=== PATIENT | female | born 1960 | race Caucasian/White ===

== ENCOUNTER 2020-04-12 09:05 | Emergency (ER) | payer BC ==
--- OUTSIDE RECORDS SUMMARY | 2020-04-12 09:07 | XMS REPORT | Continuity of Care Document ---
:1960 Author Organization [facility] t Address [address] [place] [address] Care Team Providers Name Role Phone Unavailable Unavailable Unavailable Payers Payer Name Policy Type Policy Number Effective Date Expiration Date S ource Problems This patient has no known problems. Allergies, Adverse Reactions, Alerts Allergy Allergy Status Severity Reaction(s) Onset Inactive Treating Comm ents Source Name Type Date Date Clinician codeine DA Active [place] 2018-08 [facility] 09-21 [place] 00:00: [facility] adhesive DA Active [place] 2018-08 [facility] tape 09-21 [place] 00:00: [facility] codeine DA Active [place] 2018-08 [facility] 09-12 [place] 00:00: [facility] latex DA Active [place] 2018-08 [facility] 09-12 [place] 00:00: [facility] Medications This patient has no known medications. Procedures This patient has no known procedures. Results This patient has no known results.
[2020-04-12] MEDS ORDERED: NA CHLORIDE 0.9% 1,000 ML ONE (09:52)
[2020-04-12 10:15] LABS: Absolute Lymphocytes (CBC) 2.1 K/uL (0.7-4.9); Basophils % 0.6 % (0-1.3); Hematocrit 36.8 % (36.0-45.0); Lymphocytes % 33.8 % (15.3-44.8); MPV 9.8 fL (7.6-11.3); RBC Red Blood Cell Count 4.06 M/uL (3.86-4.86)
[2020-04-12 10:18] LABS: Protime INR 0.95
[2020-04-12 10:38] LABS: ALT/SGPT 21 U/L (12-78); AST/SGOT 12 U/L (15-37); Albumin 3.7 g/dL (3.4-5.0); Alkaline Phosphatase 73 U/L (45-117); BUN Blood Urea Nitrogen 20 mg/dL (7-18); Bicarbonate 27 mmol/L (21-32); Bilirubin Direct 0.2 mg/dL (0-0.2); Bilirubin Total 0.5 mg/dL (0.2-1.0); Glucose Level 92 mg/dL (74-106); NT PRO-BNP 21 pg/mL (<125); Potassium 3.6 mmol/L (3.5-5.1); Protein, Total 6.8 g/dL (6.4-8.2); Sodium Level 142 mmol/L (136-145); Troponin (Emerg Dept Use Only) < 0.02 ng/mL (0.0-0.045)
--- NOTE | 2020-04-12 10:42 | RAD REPORT ---
EXAM DESCRIPTION: RAD - Chest Single View - 04/12/2020 10:22 am CLINICAL HISTORY: COUGH Chest pain. COMPARISON: CHEST PA AND LAT 2 VIEW dated 12/27/2008; CHEST PA AND LAT 2 VIEW dated 05/12/1994 FINDINGS: Portable technique limits examination quality. The lungs are grossly clear. The heart is normal in size. No displaced fractures. IMPRESSION: No acute intrathoracic process suspected.
--- NOTE | 2020-04-12 11:30 | ER ---
Nurse's Notes [facility] Name: Betsy Banda Age: 59 yrs Sex: Female : 1960 Arrival Date: 04/12/2020 Time: 09:08 Bed 20 Private MD: Diagnosis: Weakness;Hypothyroidism, unspecified Presentation: 04/12 09:15 Chief complaint: Patient states: tested positive for COVID on Mar 17, was tested at [facility] in [place], her arms and legs are so heavy and she feels so weak, is constantly eating something and just wants to sleep, no fever , cough. Coronavirus screen: Client reports previous positive COVID test result. Date of collection: March 17, 2020. Ebola Screen: Patient negative for fever greater than or equal to 101.5 degrees Fahrenheit, and additional compatible Ebola Virus Disease symptoms Patient denies exposure to infectious person. Patient denies travel to an Ebola-affected area in the 21 days before illness onset. No symptoms or risks identified at this time. Initial Sepsis Screen: Does the patient meet any 2 criteria? No. Patient's initial sepsis screen is negative. Does the patient have a suspected source of infection? No. Patient's initial sepsis screen is negative. Risk Assessment: Do you want to hurt yourself or someone else? Patient reports no desire to harm self or others. Onset of symptoms was March 12, 2020. 09:15 Method Of Arrival: Ambulatory 09:15 Acuity: ADÁN 3 iw Historical: - Allergies: 09:19 Codeine; iw - Home Meds: 09:19 levothyroxine 150 mcg tab 1 tab once daily [Active]; fenofibrate oral 134 mg oral once iw daily [Active]; - PMHx: 09:19 Hypothyroidism; iw - PSHx: 09:19 shoulder; Carpal Tunnel Repair; Hysterectomy; iw - Immunization history:: Adult Immunizations up to date. - Social history:: Smoking status: Patient denies any tobacco usage or history of. Screenin:22 Abuse screen: Denies threats or abuse. Nutritional screening: No deficits noted. rb1 Tuberculosis screening: No symptoms or risk factors identified. Fall Risk None identified. Assessment: 09:22 General: Appears in no apparent distress. Behavior is calm, cooperative, Denies fever. rb1 Pain: Denies pain. Neuro: Level of Consciousness is awake, alert, obeys commands, Oriented to person, place, time, situation, Reports weakness. Cardiovascular: Capillary refill < 3 seconds. Respiratory: Airway is patent Respiratory effort is even, unlabored, Respiratory pattern is regular, symmetrical. GI: No signs and/or symptoms were reported involving the gastrointestinal system. : No signs and/or symptoms were reported regarding the genitourinary system. Derm: Skin is pink, warm \T\ dry. Musculoskeletal: Range of motion: intact in all extremities. 10:19 Reassessment: Patient appears in no apparent distress at this time. No changes from rb1 previously documented assessment. 11:15 Reassessment: Patient appears in no apparent distress at this time. rb1 11:59 Reassessment: Discharge pending due to awaiting lab results. iw 12:00 Reassessment: Patient appears in no apparent distress at this time. Patient and/or rb1 family updated on plan of care and expected duration. Pain level reassessed. Patient is alert, oriented x 3, equal unlabored respirations, skin warm/dry/pink. 12:50 Reassessment: Awaiting lab results. iw Vital Signs: 09:15 Pulse 83; Resp 16; Temp 98.9; Pulse Ox 98% on R/A; Weight 81.65 kg; Height 5 ft. 9 in. iw (175.26 cm); 10:15 BP 115 / 74; Pulse 71; Resp 15; Pulse Ox 97% ; rb1 11:10 BP 123 / 72; Pulse 70; Resp 14; Pulse Ox 97% ; rb1 12:10 BP 115 / 64; Pulse 67; Resp 13; Pulse Ox 100% ; rb1 13:10 BP 127 / 69; Pulse 66; Resp 12; Pulse Ox 100% ; iw 09:15 Body Mass Index 26.58 (81.65 kg, 175.26 cm) iw NIH Stroke Scale Scores: 11:23 NIHSS Score: 0 emir ED Course: 09:08 Patient arrived in ED. ds1 09:17 Triage completed. iw 09:19 Arm band placed on. iw 09:23 Joni Christianson MD is Attending Physician. emir 09:38 Babrara Cruz, RN is Primary Nurse. rb1 10:00 Initial lab(s) drawn, by me, sent to lab. First set of blood cultures drawn EKG done, mh5 by ED staff, reviewed by Joni Christianson MD. Inserted saline lock: 22 gauge in left forearm, using aseptic technique. Blood collected. 10:08 D-Dimer Sent. 5 10:09 Lactate Sent. mh5 10:09 Procalcitonin Sent. 5 10:09 Blood Culture Adult (2) Sent. mh5 10:09 Basic Metabolic Panel Sent. 5 10:09 CBC with Diff Sent. 5 10:09 LFT's Sent. 5 10:09 Magnesium Sent. 5 10:09 NT PRO-BNP Sent. 5 10:09 PT-INR Sent. 5 10:09 Troponin (emerg Dept Use Only) Sent. mh5 10:10 Patient has correct armband on for positive identification. Placed in gown. Bed in low mh5 position. Call light in reach. Side rails up X 1. Warm blanket given. hall monitor on. Pulse ox on. NIBP on. 10:22 XRAY Chest (1 view) In Process Unspecified. EDMS 13:18 No provider procedures requiring assistance completed. IV discontinued, intact, rb1 bleeding controlled, No redness/swelling at site. Pressure dressing applied. Administered Medications: 10:13 Drug: NS 0.9% 1000 ml Route: IV; Rate: 125 ml/hr; Site: left forearm; rb1 11:58 Drug: Aspirin Chewable Tablet 324 mg Route: PO; rb1 11:58 Drug: Solu-CORTEF 100 mg Route: IVP; Site: left forearm; rb1 Outcome: 11:30 Discharge ordered by . emir 13:18 Patient left the ED. rb1 13:18 Discharged to home ambulatory. rb1 13:18 Condition: stable 13:18 Discharge instructions given to patient, Instructed on discharge instructions, follow up and referral plans. Demonstrated understanding of instructions, follow-up care, medications, Prescriptions given X 1. NIH Stroke Scale - NIH Stroke Score Date: 04/12/2020 Time: 11:23 Total Score = 0 1a. Level of Consciousness (LOC) - 0(Alert) 1b. Level of Consciousness (LOC) (Year \T\ Age) - 0(Both) 1c. LOC Commands (Open \T\ Closes Eyes/Flattening Machine Operator) - 0(Both) 2. Best Gaze (Lateral Gaze Paresis) - 0(Normal) 3. Visual Field Loss - 0(No visual loss) 4. Facial Palsy - 0(Normal) 5a. Left Arm: Motor (10-second hold) - 0(No drift) 5b. Right Arm: Motor (10-second hold) - 0(No drift) 6a. Left Leg: Motor (5-second hold - always test supine) - 0(No drift) 6b. Right Leg: Motor (5-second hold - always test supine) - 0(No drift) 7. Limb Ataxia (finger/nose \T\ heel/quiros - test with eyes open) - 0(Absent) 8. Sensory Loss (pinprick arms/legs/face) - 0(Normal) 9. Best Language: Aphasia (description/naming/reading) - 0(No aphasia) 10. Dysarthria (speech clarity - read or repeat words) - 0(Normal) 11. Extinction and Inattention (visual/tactile/auditory/spatial/personal) - 0(No abnormality) Initials: emir Signatures: Dispatcher [employer] EDMS Joni Christianson MD MD cha Sanford, Demi ds1 Romelia Arciniega RN RN iw Barbara Cruz RN RN rb1 [facility] Corrections: (The following items were deleted from the chart) 13:30 13:28 Patient left the ED. amanda rb1
--- NOTE | 2020-04-12 11:30 | EDPHYS ---
Physician Documentation [facility] Name: Betsy Banda Age: 59 yrs Sex: Female : 1960 Arrival Date: 04/12/2020 Time: 09:08 Bed 20 Private MD: ED Physician Joni Christianson HPI: 04/12 11:23 This 59 yrs old Female presents to ER via Ambulatory with complaints of emir Weakness, Covid +. Historical: - Allergies: : Codeine; iw - Home Meds: : levothyroxine 150 mcg tab 1 tab once daily [Active]; fenofibrate oral 134 mg oral once iw daily [Active]; - PMHx: : Hypothyroidism; iw - PSHx: : shoulder; Carpal Tunnel Repair; Hysterectomy; iw - Immunization history:: Adult Immunizations up to date. - Social history:: Smoking status: Patient denies any tobacco usage or history of. ROS: 11:23 Constitutional: Negative for fever, chills, and weight loss, Eyes: Negative for injury, emir pain, redness, and discharge, ENT: Negative for injury, pain, and discharge, Neck: Negative for injury, pain, and swelling, Cardiovascular: Negative for chest pain, palpitations, and edema, Respiratory: Negative for shortness of breath, cough, wheezing, and pleuritic chest pain, Abdomen/GI: Negative for abdominal pain, nausea, vomiting, diarrhea, and constipation, Back: Negative for injury and pain, : Negative for injury, bleeding, discharge, and swelling, MS/Extremity: Negative for injury and deformity, Skin: Negative for injury, rash, and discoloration, Psych: Negative for depression, anxiety, suicide ideation, homicidal ideation, and hallucinations, Allergy/Immunology: Negative for hives, rash, and allergies, Endocrine: Negative for neck swelling, polydipsia, polyuria, polyphagia, and marked weight changes, Hematologic/Lymphatic: Negative for swollen nodes, abnormal bleeding, and unusual bruising. 11:23 Neuro: Positive for weakness. Exam: 11:23 Constitutional: This is a well developed, well nourished patient who is awake, alert, emir and in no acute distress. Head/Face: Normocephalic, atraumatic. Eyes: Pupils equal round and reactive to light, extra-ocular motions intact. Lids and lashes normal. Conjunctiva and sclera are non-icteric and not injected. Cornea within normal limits. Periorbital areas with no swelling, redness, or edema. ENT: Nares patent. No nasal discharge, no septal abnormalities noted. Tympanic membranes are normal and external auditory canals are clear. Oropharynx with no redness, swelling, or masses, exudates, or evidence of obstruction, uvula midline. Mucous membranes moist. Neck: Trachea midline, no thyromegaly or masses palpated, and no cervical lymphadenopathy. Supple, full range of motion without nuchal rigidity, or vertebral point tenderness. No Meningismus. Chest/axilla: Normal chest wall appearance and motion. Nontender with no deformity. No lesions are appreciated. Cardiovascular: Regular rate and rhythm with a normal S1 and S2. No gallops, murmurs, or rubs. Normal PMI, no JVD. No pulse deficits. Respiratory: Lungs have equal breath sounds bilaterally, clear to auscultation and percussion. No rales, rhonchi or wheezes noted. No increased work of breathing, no retractions or nasal flaring. Abdomen/GI: Soft, non-tender, with normal bowel sounds. No distension or tympany. No guarding or rebound. No evidence of tenderness throughout. Back: No spinal tenderness. No costovertebral tenderness. Full range of motion. Skin: Warm, dry with normal turgor. Normal color with no rashes, no lesions, and no evidence of cellulitis. MS/ Extremity: Pulses equal, no cyanosis. Neurovascular intact. Full, normal range of motion. Neuro: Awake and alert, GCS 15, oriented to person, place, time, and situation. Cranial nerves II-XII grossly intact. Motor strength 5/5 in all extremities. Sensory grossly intact. Cerebellar exam normal. Normal gait. Psych: Awake, alert, with orientation to person, place and time. Behavior, mood, and affect are within normal limits. 11:23 Musculoskeletal/extremity: ROM: full active range of motion, full passive range of motion, Circulation is intact in all extremities. Sensation intact. Compartment Syndrome exam of affected extremity: is normal. DVT Exam: No signs of deep vein thrombosis. no pain, no swelling, no tenderness, negative Homans' sign noted on exam, no appreciated bluish discoloration, no erythema, no increased warmth. 11:23 Neuro: Orientation: appropriate for stated age, Mentation: appropriate for stated age, no acute changes, Memory: appropriate for stated age, no acute changes, Cranial nerves: is grossly normal based on the patient's age, no acute changes, Cerebellar function: is grossly normal based on the patient's age, no acute changes, Motor: is grossly normal based on the patient's age, no acute changes, moves all fours, strength is 5/5 in all extremities. 11:34 ECG was reviewed by the Attending Physician. [facility] Vital Signs: 09:15 Pulse 83; Resp 16; Temp 98.9; Pulse Ox 98% on R/A; Weight 81.65 kg; Height 5 ft. 9 in. iw (175.26 cm); 10:15 BP 115 / 74; Pulse 71; Resp 15; Pulse Ox 97% ; rb1 11:10 BP 123 / 72; Pulse 70; Resp 14; Pulse Ox 97% ; rb1 12:10 BP 115 / 64; Pulse 67; Resp 13; Pulse Ox 100% ; rb1 13:10 BP 127 / 69; Pulse 66; Resp 12; Pulse Ox 100% ; iw 09:15 Body Mass Index 26.58 (81.65 kg, 175.26 cm) NIH Stroke Scale Scores: 11:23 NIHSS Score: 0 emir MDM: 09:23 Patient medically screened. [facility] 11:26 Data reviewed: vital signs, nurses notes, lab test result(s), EKG, radiologic studies, emir CT scan, plain films. 11:28 Differential Diagnosis altered mental status, sepsis. Data interpreted: Cardiac [facility] monitor: rate is 83 beats/min, Pulse oximetry: on room air is 98 %. Test interpretation: by ED physician or midlevel provider: ECG, plain radiologic studies. Counseling: I had a detailed discussion with the patient and/or guardian regarding: the historical points, exam findings, and any diagnostic results supporting the discharge/admit diagnosis, lab results, radiology results, the need for outpatient follow up, for definitive care, a emergency manager, an pump stitcher. ED course: all test explained, follow up encouraged. 04/12 09:27 Order name: Basic Metabolic Panel; Complete Time: 12:53 [facility] 04/12 09:27 Order name: CBC with Diff; Complete Time: 11:04 [facility] 04/12 09:27 Order name: LFT's; Complete Time: 12:53 [facility] 04/12 09:27 Order name: Magnesium; Complete Time: 12:53 [facility] 04/12 09:27 Order name: NT PRO-BNP; Complete Time: 12:53 [facility] 04/12 09:27 Order name: PT-INR; Complete Time: 11:04 [facility] 04/12 09:27 Order name: Troponin (emerg Dept Use Only); Complete Time: 12:53 [facility] 04/12 09:27 Order name: Blood Culture Adult (2) [facility] 04/12 09:27 Order name: Procalcitonin; Complete Time: 11:04 [facility] 04/12 09:27 Order name: Lactate; Complete Time: 11:04 [facility] 04/12 09:27 Order name: D-Dimer; Complete Time: 11:04 [facility] 04/12 11:31 Order name: LAB Add On eb 04/12 11:34 Order name: Thyroid Stimulating Hormone; Complete Time: 12:53 EDMS 04/12 09:27 Order name: XRAY Chest (1 view); Complete Time: 11:04 [facility] 04/12 09:27 Order name: EKG; Complete Time: 09:28 [facility] 04/12 09:27 Order name: Cardiac monitoring; Complete Time: 10:09 [facility] 04/12 09:27 Order name: EKG - Nurse/Tech; Complete Time: 10:09 [facility] 04/12 09:27 Order name: IV Saline Lock; Complete Time: 10:09 [facility] 04/12 09:27 Order name: Labs collected and sent; Complete Time: 10:09 [facility] 04/12 09:27 Order name: O2 Per Protocol; Complete Time: 10:13 [facility] 04/12 09:27 Order name: O2 Sat Monitoring; Complete Time: 10:13 [facility] 04/12 09:27 Order name: Urine Dipstick-Ancillary (obtain specimen); Complete Time: 12:04 [facility] 04/12 11:59 Order name: T4 Free; Complete Time: 12:53 EDMS 04/12 12:00 Order name: Urine Dipstick--Ancillary (enter results) eb EC:34 Rate is 73 beats/min. Rhythm is regular. QRS Hardy is Normal. WA interval is normal. QRS emir interval is normal. QT interval is normal. No Q waves. T waves are Normal. No ST changes noted. Clinical impression: Normal ECG and No evidence of ischemia. Interpreted by me. Reviewed by me. Administered Medications: 10:13 Drug: NS 0.9% 1000 ml Route: IV; Rate: 125 ml/hr; Site: left forearm; rb1 11:58 Drug: Aspirin Chewable Tablet 324 mg Route: PO; rb1 11:58 Drug: Solu-CORTEF 100 mg Route: IVP; Site: left forearm; rb1 Disposition: 04/12/20 11:30 Discharged to Home. Impression: Weakness, Hypothyroidism, unspecified. - Condition is Stable. - Discharge Instructions: Hypothyroidism, Weakness, Fatigue, Weakness, [id number], Aspirin and Your Heart. - Prescriptions for Medrol (Yonis) 4 mg Oral Tablets, Dose Pack - take 1 tablet by ORAL route as directed - follow package instructions; 1 packet. - Medication Reconciliation Form, Thank You Letter, Antibiotic Education, Prescription Opioid Use form. - Follow up: Private Physician; When: 2 - 3 days; Reason: Recheck today's complaints, Continuance of care, Re-evaluation by your physician. - Problem is new. - Symptoms have improved. NIH Stroke Scale - NIH Stroke Score Date: 04/12/2020 Time: 11:23 Total Score = 0 1a. Level of Consciousness (LOC) - 0(Alert) 1b. Level of Consciousness (LOC) (Year \T\ Age) - 0(Both) 1c. LOC Commands (Open \T\ Closes Eyes/Cash Poster) - 0(Both) 2. Best Gaze (Lateral Gaze Paresis) - 0(Normal) 3. Visual Field Loss - 0(No visual loss) 4. Facial Palsy - 0(Normal) 5a. Left Arm: Motor (10-second hold) - 0(No drift) 5b. Right Arm: Motor (10-second hold) - 0(No drift) 6a. Left Leg: Motor (5-second hold - always test supine) - 0(No drift) 6b. Right Leg: Motor (5-second hold - always test supine) - 0(No drift) 7. Limb Ataxia (finger/nose \T\ heel/quiros - test with eyes open) - 0(Absent) 8. Sensory Loss (pinprick arms/legs/face) - 0(Normal) 9. Best Language: Aphasia (description/naming/reading) - 0(No aphasia) 10. Dysarthria (speech clarity - read or repeat words) - 0(Normal) 11. Extinction and Inattention (visual/tactile/auditory/spatial/personal) - 0(No abnormality) Initials: [facility] Signatures: Dispatcher [employer] [facility] Joni Christianson MD MD cha Williams, Irene, FREDO RN iw Barbara Cruz RN RN rb1 Corrections: (The following items were deleted from the chart) 11:34 11:31 THYROID STIMULAT HORMONE+C.LAB.BRZ ordered. [facility] 12:54 11:30 04/12/2020 11:30 Discharged to Home. Impression: Weakness. Condition is emir Stable. Forms are Medication Reconciliation Form, Thank You Letter, Antibiotic Education, Prescription Opioid Use. Follow up: Private Physician; When: 2 - 3 days; Reason: Recheck today's complaints, Continuance of care, Re-evaluation by your physician. Problem is new. Symptoms have improved. [facility] 13:28 12:54 04/12/2020 11:30 Discharged to Home. Impression: Weakness; iw Hypothyroidism, unspecified. Condition is Stable. Discharge Instructions: Weakness, Fatigue, Weakness, [id number], Aspirin and Your Heart. Prescriptions for Medrol (Yonis) 4 mg Oral Tablets, Dose Pack - take 1 tablet by ORAL route as directed - follow package instructions; 1 packet. and Forms are Medication Reconciliation Form, Thank You Letter, Antibiotic Education, Prescription Opioid Use. Follow up: Private Physician; When: 2 - 3 days; Reason: Recheck today's complaints, Continuance of care, Re-evaluation by your physician. Problem is new. Symptoms have improved. emir
[2020-04-12] MEDS ORDERED: HYDROCORTISONE SUC 100 MG INJ ONE (11:43)
[2020-04-12] MEDS ORDERED: ASPIRIN 81 MG CHEWABLE TABLET ONE (11:43)
[2020-04-12 13:03] LABS: Urine Blood NEGATIVE (NEG); Urine Glucose NEGATIVE (NEG); Urine Protein NEGATIVE (NEG); Urine pH 6.5 (5.0-7.0)
--- NOTE | 2020-04-13 06:54 | EKG ---
Test Date: 2020-04-12 Test Time: 09:42:18 Floral Designer: STEPHANIE MEASUREMENT RESULTS: Intervals: Rate: 73 MT: 154 QRSD: 84 QT: 408 QTc: 449 [place]: P: 56 MT: 154 QRS: 7 T: 54 INTERPRETIVE STATEMENTS: Normal sinus rhythm Cannot rule out Anterior infarct, age undetermined Abnormal ECG Compared to ECG 11/02/1995 14:22:00 Myocardial infarct finding now present Sinus bradycardia no longer present Electronically Signed On 04-13-20 06:53:11 CDT by Constantino Craft
[2020-04-13 12:54] VITALS: TEMP 98.9
[2020-04-13 12:58] VITALS: O2SAT 100
[2020-04-13 12:59] VITALS: BP 127/69
== END 2020-04-12 13:28 | disposition home or self-care (01) ==
LOC: ER 09:05
DX: E03.9 Hypothyroidism, unspecified (principal); Z86.19 Personal history of other infectious and parasitic diseases; Z88.5 Allergy status to narcotic agent
CPT/HCPCS: 93005; 87040 ×2; 85025; 80048; 36415; 83735; 85610; 85379; 80076; 83605; 84443; 81003; 84484; 84439; 84145; 83880; 71045; 96374; 99285; J7030; J1720

== ENCOUNTER 2024-05-22 03:50 | Emergency (ER) | payer BC, OTHER ==
--- OUTSIDE RECORDS SUMMARY | 2024-05-22 03:53 | XMS REPORT | Continuity of Care Document ---
Author Name Unknown Address [address] [place] [address] [facility] thconnect Address [address] [place] [address] Care Team Providers Care Primary Teacher Name Role Phone Unavailable Unavailable Unavailable Payers Payer Name Policy Type Policy Number Effective Date Expirati on Date Source Allergies, Adverse Reactions, Alerts Allergy Name Allergy Type Status Severity Reaction(s) Onset Date Inactive Date Treating Clinician Comments Source codeine DA Active PA 2018-08 00:00: 00 [facility] adhesive tape DA Active PA 2018-08 00:00: 00 [facility] codeine DA Active PA 2018-08 00:00: 00 [facility] latex DA Active PA 2018-08 00:00: 00 [facility] Notes Date/Time Note Provider Source 2019-07-21 11:01:00 [id number] [place] [address] PATIENT NAME: EDWARD RUBIO ADMIT DATE: 07/21/19 ACCOUNT NO: [id number] ROOM NO: AGE: 58 REPORT TYPE: OPERATIVE REPORT SEX: F ADMITTING PHYSICIAN: ATTENDING PHYSICIAN:Kathryn Griffith MD OPERATION DATE: 07/21/2019 PREOPERATIVE DIAGNOSES: Right shoulder rotator cuff tear, recalcitrant biceps stenosis, recalcitrant subacromial impingement, and superior labral tear. POSTOPERATIVE DIAGNOSES: 1. Right shoulder full-thickness supraspinatus tendon tear. 2. Right shoulder recalcitrant biceps tendinosis with partial tear. 3. Right shoulder type 2 superior labral anterior to posterior tear. 4. Right shoulder recalcitrant subacromial impingement with type 2 acromion, subacromial bursitis. PROCEDURES PERFORMED: 1. Right shoulder diagnostic arthroscopy with arthroscopic rotator cuff repair (78415). 2. Right shoulder arthroscopy with biceps tenodesis (72374). 3. Right shoulder arthroscopic debridement of the superior, anterior, and posterior labrum (33581). 4. Right shoulder arthroscopic subacromial decompression with minimal acromioplasty (58206). ATTENDING SURGEON: Kathryn Griffith MD. MOTOR EQUIPMENT CAPTAIN: Marya Wharton=CELENA Clark The skilled assistance of the visitor use assistant surgeon was necessary during this complex shoulder reconstructive procedure.? They assisted with every aspect of the operation including, but not limited to, proper and safe positioning of the patient, obtaining adequate surgical exposure, manipulation of surgical instruments, perfect visualization of the surgical field, the meticulous task of assisting with suture passage and assistance during implant placement, manipulation of the instrumentation during implant placement, visualization during suture passage, assistance during knot tying, assisting during work around the shoulder, assisting with access to each portion of the joint, assisting with limb positioning during the procedure, incision closure, dressing placement, assistance with moving the patient off of the operating table, proper placement of the postoperative sling, and assistance with patient transfer from the operating room. Their assistance allowed me to perform the most sensitive and technical potions of this operation using 2 hands, thus enhancing patient safety.? This would not be possible without the help of a skilled visitor use assistant familiar with the procedure and capable of safely performing the aforementioned tasks.? Our facility is not a teaching hospital, and as such, no surgical residents or interns were available to assist. PATIENT NAME: EDWARD RUBIO ANESTHESIA: General plus preoperative interscalene nerve block. ESTIMATED BLOOD LOSS: 30 mL. COMPLICATIONS: None. SPECIMENS: None. DISPOSITION: Stable to PACU. IMPLANTS: Two Arthrex FiberTak anchors utilized for the biceps tenodesis. Two Patel [employer] Nephew Healicoil anchors utilized in the medial row and two Patel [employer] Nephew footprint anchors utilized in the lateral row to complete a transosseous equivalent double row 2 x 2 rotator cuff repair. FINDINGS: The chondral surfaces of the glenoid and humeral head were intact. There was a type 2 superior labral anteroposterior tear extending to sublabral foramen. There was thickening, inflammation, and hypertrophy along the long head of the biceps tendon with a partial tear involving 10% of the biceps tendon extending to the biceps groove. There was full-thickness supraspinatus tendon tear measuring 20-mm in anterior posterior direction with 15-mm of retraction. Tissue quality was good and amenable to repair. Remainder of the rotator cuff was intact. There was thickening, inflammation, and hypertrophy of subacromial bursal proliferation and a type 2 acromion and subacromial space necessitated acromioplasty and subacromial decompression. The shoulder joint was stable. INDICATIONS FOR PROCEDURE: Ms. Rubio is a pleasant 58-year-old female, who has been experiencing right shoulder pain, weakness, loss of motion, loss of function worse over the past year. The pain worsens with overhead activities and at night. The pain has been refractory to multiple conservative treatment options for over 6 months including selective rest, activity modification, therapeutic exercises, and prescription anti-inflammatory use. The pain and weakness are severe, causing a loss of shoulder function, and affecting activities of daily living. Preoperative exam demonstrated weakness with rotator cuff testing, decreased active range of motion, positive biceps tendinitis, positive Neer?s and Hawkin?s impingement signs.Preoperative MRI demonstrated rotator cuff tear, biceps tendinitis. The risks and benefits of continued conservative, alternative, and surgical options were discussed at length. Specific risks of shoulder arthroscopy were discussed at length including infection, nerve injury, venous thromboembolism, continued pain, stiffness, risk of retear, failure of the biceps tenodesis, failure of the rotator cuff repair, the need for further surgery, and the risks of anesthesia. The expected postoperative course was discussed at length. The patient understood, agreed, and elected to proceed with the aforementioned surgery. Informed consent was obtained. PROCEDURE IN DETAIL: The patient was identified in the preoperative holding area and the operative site was marked. The patient was brought in the operating room and placed in the modified beach chair position. Once appropriate anesthesia was obtained, prophylactic IV antibiotics were administered. An examination under anesthesia was performed. The operative shoulder was prepped and draped in the usual sterile fashion. A time- out was performed verifying the patient's name, the operative site, procedure to be performed, administration of IV antibiotics, and the need for any specific equipment. PATIENT NAME: EDWARD RUBIO Utilizing a standard posterior portal with an #11 blade to the skin and blunt penetration of the glenohumeral joint, a diagnostic arthroscopy of the shoulder was performed with the findings as stated above. Anterior portal was created. The superior labral anterior to posterior tear was identified, extending into the sublabral foramen. The anterior, superior, and posterior portions of the labrum were debrided back to smooth stable configuration. The biceps was inspected and tendinosis along the biceps tendon was visualized. The biceps was then released off the superior labral attachment. The rotator cuff was inspected. After this was completed, a final diagnostic arthroscopy demonstrated no further treatable pathology in the joint. The arthroscopic equipment was removed and placed the subacromial space. An accessory lateral portal was created. Hypertrophic thickening and inflammation in the subacromial bursa was noted. A subacromial bursectomy occurred and small acromioplasty occurred, creating a type 1 acromion. The rotator cuff was inspected and the rotator cuff tear full thickness was identified. This was subsequently repaired by removing all debris overlying the footprint creating a bleeding surface of bone without disturbing the subchondral plate. Two suture anchors were placed in the medial aspect of the footprint anteriorly and posteriorly. The sutures were passed through the tendon with a self retrieving suture passer. The sutures were tied arthroscopically in a mattress fashion. The terminal ends of the sutures were placed in a cruciate configuration through two lateral anchors. This completed the transosseous equivalent double- row rotator cuff repair. This secured the rotator cuff well through a range of motion. Subdeltoid dissection occurred down to the bicipital groove. The biceps sheath was released, and the biceps tendon was subluxed out of the groove. Bleeding was controlled with electrocautery. The bicipital groove was gently decorticated. Two all-suture anchors were placed in the distal aspect of the bicipital groove. The biceps was placed in the appropriate tension. The sutures from each anchor were placed around the biceps in a lasso-loop technique. The sutures were sequentially tied down and cut. This secured the biceps tenodesis at the appropriate tension. Final diagnostic arthroscopy demonstrated no further treatable pathology, so the arthroscopic equipment was removed from the shoulder after the fluid was drained from it. Portal sites were closed with buried Monocryl suture. A sterile dressing followed by a sling was applied. The patient was awakened from anesthesia without complication, transferred to the postoperative care unit in stable condition. POSTOPERATIVE PLAN: Discharge home once discharge criteria are met. Oral pain medication for pain control. VTE prophylaxis initiated. Sling for 4 weeks, which was fitted for home use, and is medically necessary to protect the rotator cuff repair while the shoulder regains full motion and strength. Follow-up in the office in 10 to 14 days or sooner as needed. Start pendulum exercises, and advance per rotator cuff repair physical therapy protocol. Dictated By: Kathryn Griffith MD PATIENT NAME: EDWARD RUBIO WT: OP:SARA/[id number]/NTS Conf#: [id number]/DID#: [id number] Authenticated and Edited by Kathryn Griffith MD On 07/29/19 9:37:48 AM at 0939 PATIENT NAME: EDWARD RUBIO [facility] 2019-07-12 14:03:00 [id number] [place] [address] PATIENT NAME: EDWARD RUBIO ADMIT DATE: ACCOUNT NO: [id number] ROOM NO: AGE: 58 REPORT TYPE: ELECTROCARDIOGRAM SEX: F ADMITTING PHYSICIAN: ATTENDING PHYSICIAN:Kathryn Griffith MD Order: [id number] Test Reason : PRE-OP CLEARANCE, AGE 58YRS Test Date/Time Stamp: TueJul 12 2019 14:03:42 Blood Pressure : / mmHG Vent. Rate : 074 BPM Atrial Rate : 074 BPM P-R Int : 162 ms QRS Dur : 096 ms QT Int : 420 ms P-R-T Axes : 059 038 058 degrees QTc Int : 466 ms Normal sinus rhythm Normal ECG No previous ECGs available Confirmed by THIEN CRUMP MD ([id number]) on 07/13/2019 5:30:33 PM Referred By: Kathryn Griffith Confirmed by:THIEN CRUMP MD at 1730 PATIENT NAME: EDWARD RUBIO [facility]
[2024-05-22] MEDS ORDERED: CEFTRIAXONE 2000 MG/VIAL ONE (04:20)
[2024-05-22] MEDS ORDERED: CIPROFLOXACIN HCL 500 MG TAB ONE (04:20)
[2024-05-22] MEDS ORDERED: NA CHLORIDE 0.9% 1,000 ML ONE (04:20)
[2024-05-22] MEDS ORDERED: PHENAZOPYRIDINE 100MG TAB PO ONE (04:20)
[2024-05-22 04:56] LABS: Absolute Eosinophils 0.4 K/uL (0-0.5); Absolute Lymphocytes (CBC) 2.2 K/uL (0.7-4.9); Absolute Monocytes 0.8 K/uL (0.1-1.3); Absolute Neutrophil 5.1 K/uL (1.8-8.0); Basophils % 0.2 % (0-1.3); Eosinophils % 4.6 % (0-4.4); Hematocrit 34.3 % (36.0-45.0); Hemoglobin 11.9 g/dL (12.0-15.0); Lymphocytes % 25.6 % (15.3-44.8); MCH 31.1 pg (27.0-35.0); MCHC 34.6 g/dL (32.0-36.0); MCV 89.9 fL (80-100); MPV 9.9 fL (7.6-11.3); Monocytes % 9.8 % (3.3-12.3); Neutrophils % 59.8 % (41.7-73.7); Platelets 261 thou/uL (152-406); RBC Red Blood Cell Count 3.81 M/uL (3.86-4.86); Red Cell Distribution Width 13.1 % (12.1-15.2)
[2024-05-22 05:01] LABS: Sqamous Epithelial <5 /HPF (None Seen); Urine Bacteria <20 /HPF (<20); Urine Bilirubin NEGATIVE (Negative); Urine Blood 2+ (Negative); Urine Clarity Extremely Turbid (Clear); Urine Color Dark-Yellow (Yellow); Urine Culture Reflex Order REFLEXED; Urine Glucose 2+ (Negative); Urine Ketones NEGATIVE (Negative); Urine Microscopic Reflex YN ORDER UMIC; Urine Mucus Slight /HPF (None Seen); Urine Nitrite 1+ (Negative); Urine Protein NEGATIVE (Negative); Urine Urobilinogen Normal (Normal); Urine WBC >50 /HPF (<5); Urine pH 5.5 (5.0-7.0)
--- NOTE | 2024-05-22 05:17 | ER ---
Nurse's Notes [facility] Name: Betsy Banda Age: 63 yrs Sex: Female : 1960 Arrival Date: 05/22/2024 Time: 03:50 Bed 6 Private MD: Diagnosis: Dysuria;UTI/ Urinary tract infection, site not specified Presentation: 05/22 04:13 Chief complaint: Patient states: urinary incontinence, pain with urination, and low vc1 back pain. Coronavirus screen: Client denies travel out of the [place] in the last 14 days. At this time, the client does not indicate any symptoms associated with coronavirus-19. Ebola Screen: Patient negative for fever greater than or equal to 101.5 degrees Fahrenheit, and additional compatible Ebola Virus Disease symptoms Patient denies exposure to infectious person. Patient denies travel to an Ebola-affected area in the 21 days before illness onset. No symptoms or risks identified at this time. Initial Sepsis Screen: Does the patient meet any 2 criteria? No. Patient's initial sepsis screen is negative. Does the patient have a suspected source of infection? No. Patient's initial sepsis screen is negative. Risk Assessment: Do you want to hurt yourself or someone else? Patient reports no desire to harm self or others. Onset of symptoms was May 22, 2024. 04:13 Method Of Arrival: Ambulatory vc1 04:13 Acuity: ADÁN 3 vc1 Triage Assessment: 04:16 General: Appears in no apparent distress. uncomfortable, Behavior is calm, cooperative, vc1 appropriate for age. Pain: Complains of pain in suprapubic area, right inguinal area and left inguinal area. EENT: No deficits noted. No signs and/or symptoms were reported regarding the EENT system. Neuro: Level of Consciousness is awake, alert, obeys commands, Oriented to person, place, time, situation, Appropriate for age. Cardiovascular: No deficits noted. Respiratory: Airway is patent Respiratory effort is even, unlabored, Respiratory pattern is regular, symmetrical. GI: Reports lower abdominal pain. : Urine is orange, taking AZO Reports burning with urination, incontinence, urgency, urinary frequency. Derm: Skin is intact, is healthy with good turgor, Skin is clammy. Musculoskeletal: Circulation, motion, and sensation intact. Range of motion: intact in all extremities. Historical: - Allergies: 04:15 Codeine; vc1 - PMHx: 04:15 Hypothyroidism; Fibromyalgia; vc1 - PSHx: 04:15 None; vc1 - Immunization history:: Client reports receiving the 2nd dose of the Covid vaccine, Pneumococcal vaccine is up to date, Flu vaccine is up to date. - Infectious Disease History:: Denies. - Social history:: Smoking status: Patient denies any tobacco usage or history of. Screenin:18 Abuse screen: Denies threats or abuse. Nutritional screening: No deficits noted. vc1 Tuberculosis screening: No symptoms or risk factors identified. 04:22 [facility] ED Fall Risk Assessment (Adult) History of falling in the last 3 months, lg3 including since admission No falls in past 3 months (0 pts) Confusion or Disorientation No (0 pts) Intoxicated or Sedated No (0 pts) Impaired Gait No (0 pts) Mobility Assist Device Used No (0 pt) Altered Elimination No (0 pt) Score/Fall Risk Level 0 - 2 = Low Risk Oriented to surroundings, Maintained a safe environment, Educated pt \T\ family on fall prevention, incl call for assistance when getting out of bed, Assessed \T\ reinforced patient's understanding of fall precautions. Assessment: 04:22 General: Appears in no apparent distress. comfortable, Behavior is calm, cooperative. lg3 Pain: Complains of pain in low back area and pelvis. Neuro: No deficits noted. Olivares Agitation-Sedation Scale (RASS): 0 - Alert and Calm Level of Consciousness is awake, alert, obeys commands, Oriented to person, place, time, situation. Cardiovascular: No deficits noted. Denies chest pain, shortness of breath, Capillary refill < 3 seconds Clubbing of nail beds is absent JVD is absent Patient's skin is warm and dry. Respiratory: No deficits noted. Airway is patent Respiratory effort is even, unlabored, Respiratory pattern is regular, symmetrical. GI: No deficits noted. Abdomen is flat, non-distended, Bowel sounds present X 4 quads. Abd is soft and non tender X 4 quads. : Reports burning with urination, pain in lower back with urination, urinary frequency. EENT: No deficits noted. No signs and/or symptoms were reported regarding the EENT system. Derm: No deficits noted. No signs and/or symptoms reported regarding the dermatologic system. Skin is intact, is healthy with good turgor, Skin is dry, Skin is normal, Skin temperature is warm. Musculoskeletal: No deficits noted. Circulation, motion, and sensation intact. Range of motion: intact in all extremities. 05:26 Reassessment: Patient appears in no apparent distress at this time. Patient and/or bm8 family updated on plan of care and expected duration. Pain level reassessed. Patient is alert, oriented x 3, equal unlabored respirations, skin warm/dry/pink. Patient denies pain at this time. Patient states feeling better. Vital Signs: 04:13 BP 110 / 72; Pulse 78; Resp 16; Temp 98.2; Pulse Ox 98% ; Weight 79.38 kg; Height 5 ft. vc1 7 in. ; 05:26 BP 113 / 63; Pulse 69; Resp 18; Temp 98.2; Pulse Ox 99% ; Pain 0/10; bm8 04:13 Body Mass Index 27.41 (79.38 kg, 170.18 cm) vc1 05:26 Pain Scale: Adult bm8 Javier Coma Score: 05:26 Eye Response: spontaneous(4). Motor Response: obeys commands(6). Verbal Response: bm8 oriented(5). Total: 15. ED Course: 03:53 Patient arrived in ED. [email or web address] 03:55 Joni Christianson MD is Attending Physician. emir 04:15 Triage completed. vc1 04:16 Ezequiel Villegas, RN is Primary Nurse. bm8 04:16 Arm band placed on right wrist. vc1 04:22 Patient has correct armband on for positive identification. Placed in gown. Bed in low lg3 position. Call light in reach. Client placed on continuous cardiac and pulse oximetry monitoring. NIBP monitoring applied. Door closed. Noise minimized. Warm blanket given. Pillow given. 04:27 CT Stone Protocol In Process Unspecified. EDMS 04:41 Inserted saline lock: 20 gauge in right antecubital area, using aseptic technique. lg3 Blood collected. 05:43 Provided Education on: post er care. bm8 05:43 No provider procedures requiring assistance completed. IV discontinued, intact, bm8 bleeding controlled, No redness/swelling at site. Pressure dressing applied. Patient maintains SpO2 saturation greater than 95% on room air. Administered Medications: 04:42 Drug: Ciprofloxacin PO 500 mg PO once Route: PO; lg3 05:27 Follow up: Response: No adverse reaction bm8 04:42 Drug: Phenazopyridine PO 200 mg PO once Route: PO; lg3 05:27 Follow up: Response: No adverse reaction bm8 04:43 Drug: NS 0.9% IV 1000 ml IV at 1000 ml once; to be given as a bolus over 60 minutes lg3 Route: IV; Rate: 1000 ml; Site: right antecubital; 05:28 Follow up: Response: No adverse reaction; IV Status: Completed infusion; IV Intake: bm8 1000ml 04:43 Drug: Rocephin IV 2 grams IV at per protocol once; Given slow IV push per pharmarcy lg3 instructions Route: IV; Rate: per protocol; Site: right antecubital; 05:27 Follow up: Response: No adverse reaction; IV Status: Completed infusion bm8 05:35 Drug: Trimethoprim-Sulfamethoxazole PO (160 mg-800 mg (DS) 1 tablet PO once Route: PO; bm8 05:43 Follow up: Response: No adverse reaction bm8 05:35 Drug: Potassium PO Effervescent Tablet 25 mEq PO once; dissolve in 4 ounces of water or bm8 juice Route: PO; 05:43 Follow up: Response: No adverse reaction bm8 Medication: 04:18 VIS not applicable for this client. vc1 Intake: 05:28 IV: 1000ml; Total: 1000ml. bm8 Outcome: 05:16 Discharge ordered by . emir 05:43 Discharged to home ambulatory, bm8 05:43 Condition: stable 05:43 Discharge instructions given to patient, Instructed on discharge instructions, follow up and referral plans. Demonstrated understanding of instructions, follow-up care, medications, Prescriptions given X 4, 05:44 Patient left the ED. bm8 Signatures: Dispatcher [employer] EDMS Joni Christianson MD MD cha Able, Lacie RN RN lg3 Dilia Guillen6 Priscilla Boggs RN RN vc1 Ezequiel Villegas RN RN bm8
--- NOTE | 2024-05-22 05:17 | EDPHYS ---
Physician Documentation [facility] Name: Betsy Banda Age: 63 yrs Sex: Female : 1960 Arrival Date: 05/22/2024 Time: 03:50 Bed 6 Private MD: ED Physician Joni Christianson HPI: 05/22 05:13 This 63 yrs old Female presents to ER via Ambulatory with complaints of Pain emir With Urination, Urinary Incontinence, Low Back Pain. 05:13 The patient presents with pain that is acute. The symptoms are located in the left low emir back and right low back. The pain does not radiate. The problem was sustained from unknown cause. Onset: The symptoms/episode began/occurred 2 day(s) ago. Severity of symptoms: At their worst the symptoms were mild, in the emergency department the symptoms are unchanged. Historical: - Allergies: 04:15 Codeine; vc1 - PMHx: 04:15 Hypothyroidism; Fibromyalgia; vc1 - PSHx: 04:15 None; vc1 - Immunization history:: Client reports receiving the 2nd dose of the Covid vaccine, Pneumococcal vaccine is up to date, Flu vaccine is up to date. - Infectious Disease History:: Denies. - Social history:: Smoking status: Patient denies any tobacco usage or history of. ROS: 05:14 Constitutional: Negative for fever, chills, and weight loss, Eyes: Negative for injury, emir pain, redness, and discharge, ENT: Negative for injury, pain, and discharge, Neck: Negative for injury, pain, and swelling, Cardiovascular: Negative for chest pain, palpitations, and edema, Respiratory: Negative for shortness of breath, cough, wheezing, and pleuritic chest pain, Abdomen/GI: Negative for abdominal pain, nausea, vomiting, diarrhea, and constipation, MS/Extremity: Negative for injury and deformity, Skin: Negative for injury, rash, and discoloration, Neuro: Negative for headache, weakness, numbness, tingling, and seizure, Psych: Negative for depression, anxiety, suicide ideation, homicidal ideation, and hallucinations, Allergy/Immunology: Negative for hives, rash, and allergies, Endocrine: Negative for neck swelling, polydipsia, polyuria, polyphagia, and marked weight changes, Hematologic/Lymphatic: Negative for swollen nodes, abnormal bleeding, and unusual bruising, 05:14 Back: Positive for pain at rest, flank pain, bilaterally, Exam: 05:14 Constitutional: This is a well developed, well nourished patient who is awake, alert, emir and in no acute distress. Head/Face: Normocephalic, atraumatic. Eyes: Pupils equal round and reactive to light, extra-ocular motions intact. Lids and lashes normal. Conjunctiva and sclera are non-icteric and not injected. Cornea within normal limits. Periorbital areas with no swelling, redness, or edema. ENT: Nares patent. No nasal discharge, no septal abnormalities noted. Tympanic membranes are normal and external auditory canals are clear. Oropharynx with no redness, swelling, or masses, exudates, or evidence of obstruction, uvula midline. Mucous membranes moist. Neck: Trachea midline, no thyromegaly or masses palpated, and no cervical lymphadenopathy. Supple, full range of motion without nuchal rigidity, or vertebral point tenderness. No Meningismus. Chest/axilla: Normal chest wall appearance and motion. Nontender with no deformity. No lesions are appreciated. Cardiovascular: Regular rate and rhythm with a normal S1 and S2. No gallops, murmurs, or rubs. Normal PMI, no JVD. No pulse deficits. Respiratory: Lungs have equal breath sounds bilaterally, clear to auscultation and percussion. No rales, rhonchi or wheezes noted. No increased work of breathing, no retractions or nasal flaring. Abdomen/GI: Soft, non-tender, with normal bowel sounds. No distension or tympany. No guarding or rebound. No evidence of tenderness throughout. Back: No spinal tenderness. No costovertebral tenderness. Full range of motion. Female : Normal external genitalia. Skin: Warm, dry with normal turgor. Normal color with no rashes, no lesions, and no evidence of cellulitis. MS/ Extremity: Pulses equal, no cyanosis. Neurovascular intact. Full, normal range of motion. Neuro: Awake and alert, GCS 15, oriented to person, place, time, and situation. Cranial nerves II-XII grossly intact. Motor strength 5/5 in all extremities. Sensory grossly intact. Cerebellar exam normal. Normal gait. Psych: Awake, alert, with orientation to person, place and time. Behavior, mood, and affect are within normal limits. Vital Signs: 04:13 BP 110 / 72; Pulse 78; Resp 16; Temp 98.2; Pulse Ox 98% ; Weight 79.38 kg; Height 5 ft. vc1 7 in. ; 05:26 BP 113 / 63; Pulse 69; Resp 18; Temp 98.2; Pulse Ox 99% ; Pain 0/10; bm8 04:13 Body Mass Index 27.41 (79.38 kg, 170.18 cm) vc1 05:26 Pain Scale: Adult bm8 Javier Coma Score: 05:26 Eye Response: spontaneous(4). Motor Response: obeys commands(6). Verbal Response: bm8 oriented(5). Total: 15. MDM: 03:55 Medical Screening Exam initiated [facility] 05:14 Differential diagnosis: strain, contusion, Herniated disc UTI, kidney stone, emir malignancy, menometrorrhagia, menorrhea, uterine fibroids, urinary tract infection. Data reviewed: vital signs, nurses notes, lab test result(s), radiologic studies, CT scan. Consideration of Admission/Observation Escalation of care including admission/observation considered. I considered the following discharge prescriptions or medication management in the emergency department Medications were administered in the Emergency Department. See MAR. Test considered but Not performed: Ultrasound NO RENAL USG. Historians other than the Patient: PT WELL INFORMED. Care significantly affected by the following chronic conditions: HYPOTHYROID, FIBROMYALGIA. Counseling: I had a detailed discussion with the patient and/or guardian regarding the historical points, exam findings, and any diagnostic results supporting the discharge/admit diagnosis, lab results, radiology results, the need for outpatient follow up. 05/22 03:57 Order name: CBC with Diff; Complete Time: 05:09 [facility] 05/22 03:57 Order name: Comprehensive Metabolic Panel; Complete Time: 05:20 [facility] 05/22 03:57 Order name: Urinalysis w/ reflexes; Complete Time: 05:09 [facility] 05/22 03:57 Order name: Urine Culture [facility] 05/22 03:57 Order name: CT Stone Protocol [facility] 05/22 05:19 Order name: PO challenge: JUICE; Complete Time: 05:43 [facility] Administered Medications: 04:42 Drug: Ciprofloxacin PO 500 mg PO once Route: PO; lg3 05:27 Follow up: Response: No adverse reaction bm8 04:42 Drug: Phenazopyridine PO 200 mg PO once Route: PO; lg3 05:27 Follow up: Response: No adverse reaction bm8 04:43 Drug: NS 0.9% IV 1000 ml IV at 1000 ml once; to be given as a bolus over 60 minutes lg3 Route: IV; Rate: 1000 ml; Site: right antecubital; 05:28 Follow up: Response: No adverse reaction; IV Status: Completed infusion; IV Intake: bm8 1000ml 04:43 Drug: Rocephin IV 2 grams IV at per protocol once; Given slow IV push per pharmarcy lg3 instructions Route: IV; Rate: per protocol; Site: right antecubital; 05:27 Follow up: Response: No adverse reaction; IV Status: Completed infusion bm8 05:35 Drug: Trimethoprim-Sulfamethoxazole PO (160 mg-800 mg (DS) 1 tablet PO once Route: PO; bm8 05:43 Follow up: Response: No adverse reaction bm8 05:35 Drug: Potassium PO Effervescent Tablet 25 mEq PO once; dissolve in 4 ounces of water or bm8 juice Route: PO; 05:43 Follow up: Response: No adverse reaction bm8 Disposition Summary: 05/22/24 05:16 Discharge Ordered Notes: Location: Home emir Problem: new emir Symptoms: have improved emir Condition: Fair emir Diagnosis - Dysuria emir - UTI/ Urinary tract infection, site not specified emir Followup: emir - With: Private Physician - When: 2 - 3 days - Reason: Recheck today's complaints, Continuance of care, Re-evaluation by your physician Discharge Instructions: - Discharge Summary Sheet emir - Dysuria emir - Urinary Tract Infection, Adult emir - Urinary Tract Infection, Adult, [id number] emir Forms: - Medication Reconciliation Form emir - Antibiotic Education emir - Prescription Opioid Use emir - Patient Portal Instructions emir - Leadership Thank You Letter [facility] Prescriptions: - ondansetron 4 mg Oral Tablet,disintegrating - take 1 tablet ORAL route every 6 to 8 hours for 4 days as needed for nausea and emir vomiting; 15 tablet; Refills: 0, Product Selection Permitted - Cipro 250 mg Oral tablet - take 1 tablet ORAL route every 12 hours; 14 tablet; Refills: 0, Product emir Selection Permitted - Pyridium 200 mg Oral tablet - take 1 tablet ORAL route every 8 hours for 2 days; 6 tablet; Refills: 0, emir Product Selection Permitted - Bactrim DS 800-160 mg Oral Tablet - take 1 tablet ORAL route every 12 hours for 3 days; 6 tablet; Refills: 0, emir Product Selection Permitted Signatures: Dispatcher [employer] EDMS Joni Christianson MD MD cha Able, Lacie, RN RN lg3 Priscilla Boggs, RN RN vc1 Ezequiel Villegas RN RN bm8 Corrections: (The following items were deleted from the chart) 03:57 03:57 CBC+H.LAB.BRZ ordered. EDMS EDMS 03:57 03:57 COMPREHENSIVE METABOLIC PANEL+C.LAB.BRZ ordered. EDMS EDMS 03:57 03:57 Urinalysis+U.LAB.BRZ ordered. EDMS EDMS 03:57 03:57 Urine Culture+BA.LAB.BRZ ordered. EDMS EDMS
[2024-05-22 05:19] LABS: Albumin 3.6 g/dL (3.4-5.0); Albumin/Globulin Ratio 1.2 (1.1-1.8); Anion Gap 6.2 mEq/L (5.0-15.0); Bilirubin Total 0.3 mg/dL (0.2-1.0); Globulin 2.9 g/dL (2.3-3.5); Potassium 3.2 mEq/L (3.5-5.1); Protein, Total 6.5 g/dL (6.4-8.2)
[2024-05-22] MEDS ORDERED: POTASSIUM 25 MEQ EFFERV TAB ONE (05:29)
[2024-05-22] MEDS ORDERED: SMZ./TMP. 800/160 MG TABLET ONE (05:29)
--- NOTE | 2024-05-22 05:35 | RAD REPORT ---
EXAMINATION: CT ABDOMEN PELVIS WITHOUT IV CONTRAST INDICATION: Female, 63 years old, FLANK PAIN COMPARISON(S): None. TECHNIQUE: CT acquisition of the abdomen and pelvis without contrast. Coronal and sagittal reformatte d images provided. This exam was performed according to departmental dose-optimization program which includes automated exposure control, adjustment of the mA and/or kV according to patient size, and/or use of iterative reconstruction technique. FINDINGS: SUPPORT DEVICES: None. LOWER CHEST: No significant abnormality within the lower chest. ABDOMEN AND PELVIS: Lack of intravenous contrast limits evaluation of the abdominal and pelvic viscera and vascular struc tures. Liver: Diffuse hypoattenuation. Gallbladder and bile ducts: At least one calcified stone within the nondistended gallbladder lumen. N o evidence of wall thickening or ductal dilation. Pancreas: Unremarkable. Spleen: Unremarkable. Adrenal glands: Unremarkable. Kidneys and ureters: No evidence of obstruction or ureteral stone. Punctate nonobstructing stone in t he left anterior renal collecting system. Bladder: Nondistended without evident abnormality. Reproductive organs: Absent uterus. No identified pelvic mass. GI tract: Normal caliber without wall thickening. Normal appendix. Moderate stool burden. Vessels: Unremarkable. Lymph nodes: Single enlarged 1.2 cm lymph node versus ectopic pancreatic tissue inferior to the uncin ate process (axial image 70/172). Peritoneum: No evidence of ascites, fluid collection, or free air. Abdominal wall: No significant hernia. MUSCULOSKELETAL: No acute osseous abnormality. Degenerative change of the spine and pelvis. IMPRESSION: 1. No acute abdominopelvic finding or evidence of urinary obstruction. 2. Punctate nonobstructing left nephrolith. 3. Cholelithiasis without CT findings of acute cholecystitis. 4. Single enlarged mesenteric lymph node versus ectopic pancreatic tissue, attention on subsequent exam. 5. Probable hepatic steatosis. Additional chronic and incidental findings above. Electronically signed by: Randall Flores MD 05/22/2024 05:32 AM CDT RP Due to temporary technical issues with the PACS/[employer] reporting system, reports are being issac d by the in-house radiologist without review as a courtesy to ensure prompt reporting the interpreting radiologist is fully responsible for the content of the report. Transcribed Date/Time: 05/22/2024 5:35 AM
[2024-05-22 10:00] VITALS: TEMP 98.2
[2024-05-22 10:02] VITALS: BP 110/72; O2SAT 98
== END 2024-05-22 05:44 | disposition home or self-care (01) ==
LOC: ER 03:50 → SUPCPDRO 03:50 → ER 05:44
DX: N39.0 Urinary tract infection, site not specified (principal); M54.50 Low back pain, unspecified
CPT/HCPCS: 87088; 85025; 81001; 87086; 36415; 80053; 76377; 74176; J0696; J7030; 87077; 87186; 96365; 99284